=== PATIENT | female | born 1990 | race African-American/Black ===

== ENCOUNTER 2016-12-15 14:38 | Emergency (ER) | payer OTHER ==
--- NOTE | 2016-12-15 15:15 | ER Document Report ---
ED Medical Screen (RME) - General Stated Complaint: SKIN PROBLEM Notes: 26 yo female c/o rash to anterior chest and neck x 3 days. no itch or pain. no new contacts. TRAVEL OUTSIDE OF THE [place] IN LAST 30 DAYS: No - Related Data Allergies/Adverse Reactions: No Known Allergies Allergy (Unverified 12/15/16 15:14)
[2016-12-15 18:06] LABS: AMORPHOUS SEDIMENT,URINE TRACE /HPF; APPEARANCE,URINE CLOUDY; BILIRUBIN,URINE NEGATIVE (NEGATIVE); GLUCOSE, URINE NEGATIVE (NEGATIVE); KETONES,URINE NEGATIVE (NEGATIVE); LEUKOCYTE ESTERASE,URINE TRACE (NEGATIVE); NITRITE,URINE NEGATIVE (NEGATIVE); PROTEIN,URINE NEGATIVE (NEGATIVE); URINE SPECIFIC GRAVITY 1.015
[2016-12-15 18:12] LABS: ABSOLUTE BASOPHILS # (AUTO) 0.1 10^3/uL (0.0-0.2); ABSOLUTE EOSINOPHILS # (AUTO) 0.3 10^3/uL (0.0-0.6); ABSOLUTE LYMPHOCYTES (AUTO) 3.2 10^3/uL (0.5-4.7); ABSOLUTE MONOCYTES (AUTO) 0.6 10^3/uL (0.1-1.4); ABSOLUTE NEUT (AUTO) 5.2 10^3/uL (1.7-8.2); BASOPHILS % (AUTO) 0.7 % (0-2); EOSINOPHILS % (AUTO) 3.2 % (0-6); HEMATOCRIT 38.7 % (36.0-47.0); HEMOGLOBIN 13.1 g/dL (12.0-15.5); HGB HCT DIFFERENCE 0.6; LYMPHOCYTES % (AUTO) 33.9 % (13-45); MEAN CORPUSCULAR HEMOGLOBIN 29.4 pg (27.0-33.4); MEAN CORPUSCULAR HGB CONC 33.9 g/dL (32.0-36.0); MEAN CORPUSCULAR VOLUME 87 fl (80-97); MONOCYTES % (AUTO) 6.4 % (3-13); RED BLOOD COUNT 4.46 10^6/uL (3.72-5.28); RED CELL DISTRIBUTION WIDTH 13.8 % (11.5-14.0); SEGMENTED NEUTROPHILS % (AUTO) 55.8 % (42-78); WHITE BLOOD COUNT 9.4 10^3/uL (4.0-10.5)
[2016-12-15 18:50] LABS: ANION GAP 12 (5-19); BLOOD UREA NITROGEN 11 mg/dL (7-20); CALCIUM 10.1 mg/dL (8.4-10.2); CARBON DIOXIDE 26 mmol/L (22-30); CHLORIDE 107 mmol/L (98-107); CREATININE RESULT 1.02 mg/dL (0.52-1.25); GLUCOSE 95 mg/dL (75-110); POTASSIUM 3.9 mmol/L (3.6-5.0); SODIUM 144.6 mmol/L (137-145)
[2016-12-15] MEDS ORDERED: METHYLPREDNISOLONE INJ 125 MG/2 ML SDV IV ONE (19:40)
--- NOTE | 2016-12-15 19:42 | ER Document Report ---
ED Skin Rash/Insect Bite/Abscs - General Mode of Arrival: Ambulatory Information source: Patient TRAVEL OUTSIDE OF THE [place] IN LAST 30 DAYS: No - HPI Patient complains to provider of: Skin rash/lesion Onset: Last week - 12/08/2016 Onset/Duration: Gradual, Worse Quality of pain: Other - Itching Skin Character: No: Papules, Petechial Quality of rash: Itchy Other exposure: denies: Detergent, Lotions, Infectious illness, Makeup <JACK EDMONDS - Last Filed: 12/15/16 23:33> <TYRA BARRERA - Last Filed: 12/27/16 13:05> - General Chief Complaint: Rash Stated Complaint: SKIN PROBLEM Notes: Patient is a 26-year-old female presenting to the emergency department chief complaint rash to her shoulder/neck onset last 12/08/2016. Patient states that it has been spreading, and has become concerning to her. Patient denies having used any new perfumes, lotions, medications, makeup, or laundry detergent. Patient has not consumed peanuts, citrus, or other fruit recently. Patient has a history of eczema, but states this is not like anything she has previously experienced. Patient denies any swelling of her tongue or lips. Patient also denies any difficulty breathing or swallowing. (JACK EDMONDS) - Related Data Allergies/Adverse Reactions: No Known Allergies Allergy (Unverified 12/15/16 15:14) Past Medical History - General Information source: Patient, [facility], [facility] Records - Social History Smoking Status: Never Smoker Chew tobacco use (# tins/day): No Frequency of alcohol use: None Drug Abuse: None Family History: Reviewed & Not Pertinent Patient has suicidal ideation: No Patient has homicidal ideation: No - Immunizations Hx Diphtheria, Pertussis, Tetanus Vaccination: Yes <JACK EDMONDS - Last Filed: 12/15/16 23:33> Review of Systems - Review of Systems Constitutional: No symptoms reported EENT: No symptoms reported Cardiovascular: No symptoms reported Respiratory: No symptoms reported Gastrointestinal: No symptoms reported Genitourinary: No symptoms reported Female Genitourinary: No symptoms reported Musculoskeletal: No symptoms reported Skin: See HPI, Rash Hematologic/Lymphatic: No symptoms reported Neurological/Psychological: No symptoms reported -: Yes All other systems reviewed and negative <JACK EDMONDS - Last Filed: 12/15/16 23:33> Physical Exam - Vital signs Interpretation: Hypertensive - General General appearance: Appears well, Alert - HEENT Head: Normocephalic, Atraumatic Eyes: Normal Pupils: PERRL Neck: Other - See skin exam - Respiratory Respiratory status: No respiratory distress Chest status: Nontender Breath sounds: Normal Chest palpation: Normal - Cardiovascular Rhythm: Regular Heart sounds: Normal auscultation Murmur: No - Abdominal Inspection: Normal Distension: No distension Bowel sounds: Normal Tenderness: Nontender Organomegaly: No organomegaly - Back Back: Normal, Nontender - Extremities General upper extremity: Normal inspection, Nontender, Normal color, Normal ROM , Normal temperature General lower extremity: Normal inspection, Nontender, Normal color, Normal ROM , Normal temperature, Normal weight bearing - Neurological Neuro grossly intact: Yes Cognition: Normal Gian Coma Scale Eye Opening: Spontaneous [place] Coma Scale Verbal: Oriented Gian Coma Scale Motor: Obeys Commands Gian Coma Scale Total: 15 Speech: Normal - Psychological Associated symptoms: Normal affect, Normal mood - Skin Skin Temperature: Warm Skin Moisture: Dry Skin irregularity: Rash - Maculopapular rash over neck into face. Does not extend to trunk. Character of irregularity: Maculopapular. negative: Petechial <JACK EDMONDS - Last Filed: 12/15/16 23:33> Course - Laboratory Result Diagrams: 12/15/16 17:57 12/15/16 17:57 <JACK EDMONDS - Last Filed: 12/15/16 23:33> - Laboratory Result Diagrams: 12/15/16 17:57 12/15/16 17:57 <TYRA BARRERA - Last Filed: 12/27/16 13:05> - Re-evaluation Re-evalutation: 12/15/16 19:44 I personally performed the services described in the documentation, reviewed and edited the documentation which was dictated to my scribe in my presence, and it accurately records my words and actions. presents emergency department with an itchy rash on her neck and her face. She seen and evaluated initially had laboratory evaluation performed all of which is negative. Patient has no tongue or lip or swelling no difficulty breathing lungs are clear gave her some Solu-Medrol blood pressure on triage arrival is 143 recheck blood pressure at bedside 145/101. 99% O2 sat 99.8 and 18 respirations. She will be discharged home rash possible allergic reaction placed on trazodone and Atarax. Her primary care physician one to 2 days and discussed reasons for ED return sooner/102 afebrile. Patient with elevated blood pressure instructed her to [facility]3 days have her blood pressure rechecked and reassessed to make sure she doesn't need to be on blood pressure medication. Currently no emergent need to start her on blood pressure medication the morning I do not know what her baseline blood pressures are. Discussed this with her and discussed reasons for ED return sooner 12/15/16 19:57 (TYRA BARRERA) - Vital Signs Vital signs: Temp Pulse Resp BP Pulse Ox 98.2 F 86 18 146/100 H 98 12/15/16 21:07 12/15/16 21:07 12/15/16 21:07 12/15/16 21:07 12/15/16 21:07 (JACK EDMONDS) (TYRA BARRERA) - Laboratory Laboratory results interpreted by tx: 12/15/16 17:23 Urine Blood SMALL H Urine Urobilinogen 2.0 H Ur Leukocyte Esterase TRACE H (JACK EDMONDS) (TYRA BARRERA) Discharge <JACK EDMONDS - Last Filed: 12/15/16 23:33> <TYRA BARRERA - Last Filed: 12/27/16 13:05> - Discharge Clinical Impression: Rash Condition: Stable Disposition: HOME, SELF-CARE Additional Instructions: ACUTE ALLERGIC REACTION: Your symptoms are due to an allergic reaction. Allergy can cause hives, swelling of the hands, feet, and face, hoarseness, and difficulty swallowing or breathing. It may be due to exposure to medication, animal dander, foods, infection, or insect bites. Medication is a common cause, even when prior use of this same medication caused no problems. Acute treatment may include adrenalin and antihistamines. Usually, the specific allergic agent can't be identified unless repeated episodes occur. Home treatment includes the following: (1) Stop any suspicious medications. This will be discussed with you. (2) Oral antihistamines for the next four to five days. Example, diphenhydramine (Benadryl) every four hours. (3) You may also use cimetidine (Tagamet), ranitidine (Zantac), or famotidine ( Pepcid) every four hours if diphenhydramine is not controlling itching and hives. (4) Avoid aspirin until the hives completely disappear. (5) Avoid hot baths or showers until the hives are completely gone. Call the doctor if faintness, difficulty swallowing, tightness in the chest , or wheezing occurs. STEROID MEDICATION INJECTION: You have been given an injection of medicine of the cortisone/steroid class. This medication is used to control inflammation or allergy. It is often continued as a pill for a short period of time, until the acute process subsides. There are usually no side effects from short-term use of cortisone-like medications. Some persons feel an increased sense of well-being and are not sleepy at bedtime. Long-term use of cortisone medications is best avoided, unless required for a severe condition. If your condition does not remit, or relapses after the course of corticosteroid medication, you should consult your physician. STEROID MEDICATION: You have been given a medicine of the cortisone/steroid class. This medication is used to control inflammation or allergy. It is usually only given for a short period of time, until the acute process subsides. There are usually no side effects from short-term use of cortisone-like medications. Some persons feel an increased sense of well-being and are not sleepy at bedtime. Long-term use of cortisone medications is best avoided, unless required for a severe condition. If your condition does not remit, or relapses after the course of corticosteroid medication, you should consult your physician. Operative primary care physician one to 2 days return for increasing worsening or new symptoms FOLLOW-UP CARE: If you have been referred to a physician for follow-up care, call the physician s office for an appointment as you were instructed or within the next two days. If you experience worsening or a significant change in your symptoms, notify the physician immediately or return to the Emergency Department at any time for re-evaluation. Prescriptions: Prednisone [Deltasone 20 mg Tablet] 3 tab PO DAILY 5 Days Forms: Elevated Blood Pressure Scribe Documentation - Scribe Written by Leander:: Jack Edmonds 12/15/20161940 acting as scribe for :: JACK Fountain - Last Filed: 12/15/16 23:33>
[2016-12-15 21:08] VITALS: BP 146/100
== END 2016-12-15 21:07 | disposition home or self-care (01) ==
LOC: ER 14:38
DX: R21 Rash and other nonspecific skin eruption (principal); L29.8 Other pruritus; I10 Essential (primary) hypertension
CPT/HCPCS: 99283; 96374; 36415; 85025; 80048; 81001; J2930